=== PATIENT | female | born 1990 | race Asian ===

== ENCOUNTER 2019-01-18 13:23 | Emergency (ER) | payer OTHER ==
[~2019-01-18] VITALS: Ht 154.9 cm; Wt 74.9 kg
[2019-01-18 14:11] LABS: PLATELET COUNT 281 K/uL (152-353)
[2019-01-18 14:22] LABS: POTASSIUM 4.8 mmol/L (3.6-5.2); SODIUM 139 mmol/L (136-145)
[2019-01-18 14:31] LABS: PARTIAL THROMBOPLASTIN TIME 25.8 SECONDS (24.5-33.6)
[2019-01-18 15:50] VITALS: BP 126/67; TEMP 97.5
== END 2019-01-18 15:50 | disposition home or self-care (01) ==
LOC: ED 13:23
PROVIDERS: Hospitalist
DX: R07.89 Other chest pain (principal)
CPT/HCPCS: 36415; 80053; 82550; 83880; 84484; 85027; 85379; 85610; 85730; 93005; 96372; 99284; J1885